=== PATIENT | male | born 1940 | race Caucasian/White ===

== ENCOUNTER 2018-08-13 17:01 | Inpatient (IN) | payer OTHER, BC ==
[2018-08-13] MEDS ORDERED: AMIODARONE HCL 150 MG/100 ML BAG (1.5 MG/ML) IV ONE ×2 (17:05→17:13)
[2018-08-13] MEDS ORDERED: NS 1,000 ML IV ONE (17:08)
--- NOTE | 2018-08-13 17:09 | EDPHY ---
H & P Time Seen by Provider: 08/13/18 17:09 HPI/ROS: HPI CHIEF COMPLAINT: V TACH HISTORY OF PRESENT ILLNESS: 70-year-old male, history of obstructive sleep apnea, AFib on Eliquis, presents to the emergency room with a wide complex tachycardia stable. Initially went to urgent care. He states over the past 4 days he has had intermittent fast heart rate palpitations. He presents emergency room completely stable. No chest pain. Does feel palpitations and lightheadedness. Patient arrives to the Emergency room heart rate 199, he is in a wide complex tachycardia. His blood pressure is 106/86. Patient mentating appropriately. Past Medical History: AFib, obstructive sleep apnea Past Surgical History: Denies recent surgery Social History: Denies drugs alcohol tobacco. Family History: Noncontributory ROS REVIEW OF SYSTEMS: 10 Systems were reviewed and negative with the exception of the elements mentioned in the history of present illness. Exam Constitutional nontoxic no acute distress triage nursing summary reviewed, vital signs reviewed, awake/alert. Vital signs noted to be heart rate 200, blood pressure 106/86. Pulse ox 96%. Eyes normal conjunctivae and sclera, EOMI, PERRLA. HENT normal inspection, atraumatic, moist mucus membranes, no epistaxis, neck supple/ no meningismus, no raccoon eyes. Respiratory clear to auscultation bilaterally, normal breath sounds, no respiratory distress, no wheezing. Cardiovascular rate normal, regular rhythm, no murmur, no edema, distal pulses normal. Gastrointestinal soft, non-tender, no rebound, no guarding, normal bowel sounds, no distension, no pulsatile mass. Genitourinary no CVA tenderness. Musculoskeletal no midline vertebral tenderness, full range of motion, no calf swelling, no tenderness of extremities, no meningismus, good pulses, neurovascularly intact. Skin pink, warm, & dry, no rash, skin atraumatic. Neurologic awake, alert and oriented x 3, AAOx3, moves all 4 extremities equally, motor intact, sensory intact, CN II-XII intact, normal cerebellar, normal vision, normal speech. Psychiatric normal mood/affect. Heme/Lymph/Immune no lymphadenopathy. Differential diagnosis includes but is not limited to: ACS, atypical chest pain , pneumothorax, pneumonia, pulmonary embolism, aortic dissection, congestive heart failure, tumor, musculoskeletal pain, esophageal pain, GERD, peptic ulcer disease, pancreatitis Medical Decision Making: Plan for this patient IV establishment full radiation monitor EKG, troponin, chest x-ray, amiodarone 300 mg IV bolus, IV fluids, cardiology consult. Admission to the hospital Re-evaluation: EKG interpretation by me on record in [facility] system. Impression time of EKG 1705, this is tachycardic 203, wide complex appears to be a ventricular tachycardia. 1715: Consult Dr. Rodriguez. Cardiology. Recommends Amio Bolus. If unstabl proceed with sedation and shock. Patient was given amiodarone bolus. His heart rate went from 200 with a wide complex tachycardia he is currently nail heart rate of 80s in AFib. EKG interpretation by me on record in [facility] system. Impression this is a repeat EKG time of EKG 1722, AFib rate of 83, T-wave abnormality inferior leads to [address] elevation. Q-waves V1 V2 V3. Subtle ST depression V4 V5 V6. Patient be admitted to the PCU due to ventricular tachycardia with a wide complex V-tach. Heart rate 200. This is now converted with amiodarone bolus. Spoke with the hospitalist service Dr. Schaeffer will admit CXR: Chest x-ray one view cardiomegaly present. No acute infiltrate. Critical Care: Total Critical Care Time Spent Managing this Patient: 65Minutes. This time was spent Exclusively with this patient. This Care was exclusive of procedures. The Organ System/life at risk was ventricular tachycardia This Patient was in Critical Condition because ventricular tachycardia. Source: Patient, EMS Constitutional: Initial Vital Signs O2 Sat (%) 98 08/13/18 17:08 O2 Delivery Mode Nasal Cannula O2 (L/minute) 2 Allergies/Adverse Reactions: No Known Allergies Allergy (Verified 08/13/18 17:34) Home Medications: Medication Instructions Recorded Apixaban [Eliquis] 5 mg PO BID 08/13/18 Latanoprost [Latanoprost] 1 drop EACHEYE HS 08/13/18 Metoprolol Succinate Xr [Toprol Xl 50 mg PO DAILY 08/13/18 50 mg (*)] Multivitamins [Multivitamin (*)] 1 each PO DAILY 08/13/18 Simvastatin [Simvastatin] 40 mg PO HS 08/13/18 Medical Decision Making - Data Points Laboratory Results: Laboratory Results 08/13/18 17:05 08/13/18 17:05 Medications Given: Amiodarone HCl (Amiodarone Hcl) 400 mg PO TID [facility] Stop: 02/10/19 21:59 Last Admin: 08/14/18 20:54 Dose: 400 mg Sodium Chloride (Ns) 1,000 mls @ 100 mls/hr IV CONT DOROTHEA Stop: 08/15/18 03:14 Last Admin: 08/14/18 18:48 Dose: 1,000 mls Latanoprost (Xalatan 0.005%) 1 drops EACHEYE HS DOROTHEA Stop: 02/09/19 20:59 Last Admin: 08/13/18 23:17 Dose: Not Given Metoprolol Succinate (Toprol Xl) 50 mg PO DAILY [facility] Stop: 02/10/19 08:59 Last Admin: 08/14/18 12:04 Dose: Not Given Temazepam (Restoril) 15 mg PO HS PRN PRN Reason: Sleep/Insomnia Stop: 02/09/19 21:23 Last Admin: 08/13/18 21:30 Dose: 15 mg Discontinued Medications Aspirin Buffered (Aspirin Ec) 325 mg PO ONCALL ONE Stop: 08/14/18 15:07 Last Admin: 08/14/18 15:19 Dose: 325 mg Clopidogrel Bisulfate (Plavix) 600 mg PO ONCE ONE Stop: 08/14/18 17:04 Last Admin: 08/14/18 18:17 Dose: Not Given Diazepam (Valium) 5 mg PO ONCALL ONE Stop: 08/14/18 15:07 Last Admin: 08/14/18 15:19 Dose: 5 mg Diphenhydramine HCl (Benadryl) 25 mg PO ONCALL ONE Stop: 08/14/18 15:07 Last Admin: 08/14/18 15:19 Dose: 25 mg Famotidine (Pepcid) 20 mg PO ONCALL ONE Stop: 08/14/18 15:07 Last Admin: 08/14/18 15:19 Dose: 20 mg Sodium Chloride (Ns) 1,000 mls @ 0 mls/hr IV EDNOW ONE; Wide Open PRN Reason: Protocol Stop: 08/13/18 17:09 Last Admin: 08/13/18 17:18 Dose: 1,000 mls Amiodarone HCl 300 mg/ (Dextrose) 106 mls @ 318 mls/hr IV ONCE ONE Stop: 08/13/18 17:29 Last Admin: 08/13/18 17:18 Dose: 106 mls Amiodarone HCl (Amiodarone Hcl) 100 mls @ 600 mls/hr IV ONCE ONE Stop: 08/13/18 17:19 Last Admin: 08/13/18 17:26 Dose: Not Given Amiodarone HCl (Amiodarone Hcl) 200 mls @ 0 mls/hr IV EDNOW ONE PRN Reason: As Directed Stop: 08/13/18 17:42 Last Admin: 08/13/18 18:00 Dose: 200 mls Sodium Chloride (Ns) 1,000 mls @ 100 mls/hr IV CONT DOROTHEA Stop: 02/09/19 18:14 Last Admin: 08/14/18 07:50 Dose: 1,000 mls Amiodarone HCl 540 mg/ (Dextrose) 300 mls @ 16.667 mls/hr IV ONCE ONE Stop: 08/14/18 17:58 Last Admin: 08/13/18 23:17 Dose: 300 mls Sodium Chloride (Ns) 1,000 mls @ 0 mls/hr IV ONCALL ONE PRN Reason: TKO Stop: 08/14/18 15:07 Last Admin: 08/14/18 15:21 Dose: Not Given Point of Care Test Results: Chemistry 08/13/18 17:10 POC Troponin I 0.80 ng/mL H ng/mL (0.00-0.08) Departure - Departure Disposition: [facility]patient Acute Clinical Impression: Ventricular tachycardia Condition: Serious
[2018-08-13] MEDS ORDERED: AMIODARONE HCL 100 ML IV ONE (17:10)
[2018-08-13] MEDS ORDERED: AMIODARONE HCL 300 MG in D5W 100 ML IV ONE (17:10)
[2018-08-13 17:24] LABS: INR 1.46 (0.83-1.16); PROTIME(PATIENT) 17.9 SEC (12.0-15.0)
[2018-08-13] MEDS ORDERED: AMIODARONE HCL 200 ML IV ONE ×2 (17:41→18:21)
[2018-08-13 17:45] LABS: PLATELET COUNT 100 10^3/uL (150-400)
[2018-08-13] MEDS ORDERED: PROMETHAZINE HCL 25 MG/ML INJ IVP PRN (18:14)
[2018-08-13] MEDS ORDERED: ACETAMINOPHEN 325 MG TAB PO PRN (18:14)
[2018-08-13] MEDS ORDERED: ONDANSETRON 4 MG/2 ML VIAL IVP PRN (18:14)
[2018-08-13] MEDS ORDERED: oxyCODONE IR 5 MG TAB PO PRN (18:14)
[2018-08-13] MEDS ORDERED: ONDANSETRON DISINTEGRATING 4 MG TAB PO PRN (18:14)
--- NOTE | 2018-08-13 19:05 | PDGENHP ---
History and Physical - Chief Complaint sob, fast heart rate - History of Present Illness 78 yo M with a PMH of a fib, HLD and BEHZAD presenting with complaints of fast heart rate and shortness of breath intermittently over the last several weeks but now persistent x 3+ hours. Patient notes this happens from time to time and generally will pass in several minutes if he takes deep breaths and sits calmly. He was seen by a salt operator associated with [facility], Dr. Augustin, recently for these sxs and states that he was told that his problem is not cardiac in nature but rather is related to stress. He notes he is under increased stress recently due to his being "an invalid" for the past 5 weeks and needing to take care of her. At the time of my evaluation patient is noted to go into several runs of sustained VT and even while that is occurring he is awake and conversant though he notes that he feels tingling in the back of his head when it occurs. History Information - Allergies/Home Medication List Allergies/Adverse Reactions: No Known Allergies Allergy (Verified 08/13/18 17:34) Home Medications: Apixaban [Eliquis] 5 mg PO BID 08/13/18 [Last Taken 08/13/18] Latanoprost [Latanoprost] 1 drop EACHEYE HS 08/13/18 [Last Taken 08/12/18] Metoprolol Succinate Xr [Toprol Xl 50 mg (*)] 50 mg PO DAILY 08/13/18 [Last Taken 08/13/18] Multivitamins [Multivitamin (*)] 1 each PO DAILY 08/13/18 [Last Taken 08/13/18] Simvastatin [Simvastatin] 40 mg PO HS 08/13/18 [Last Taken 08/12/18] I have personally reviewed and updated: family history, medical history, social history, surgical history - Past Medical History atrial fibrillation, hyperlipidemia Additional medical history: BEHZAD - Surgical History Reports: no pertinent surgical hx - Family History Positive for: non-pertinent - Social History Smoking Status: Current some day smoker Alcohol Use: Rarely Drug Use: None Additional social history: lives indepedently with his . 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 Review of Systems Review of Systems: ROS: 10pt was reviewed & negative except for what was stated in HPI & below Physical Exam Physical Exam: Temp Pulse Resp BP Pulse Ox 36.5 C 89 12 126/93 H 93 08/13/18 19:01 08/13/18 19:01 08/13/18 19:01 08/13/18 19:01 08/13/18 19:01 O2 (L/minute) 2 Constitutional: no apparent distress, appears nourished Eyes: PERRL, anicteric sclera Ears, Nose, Mouth, Throat: moist mucous membranes, hearing normal Cardiovascular: no murmur, rub, or gallop, pulses symmetric bilaterally, tachycardia Respiratory: no respiratory distress, no rales or rhonchi, clear to auscultation Gastrointestinal: normoactive bowel sounds, soft, non-tender abdomen Genitourinary: no bladder tenderness Skin: warm, normal color Musculoskeletal: full muscle strength Neurologic: AAOx3 Psychiatric: interacting appropriately, not anxious, not encephalopathic Lab Data & Imaging Review 08/13/18 17:05 08/13/18 17:05 WBC 11.61 10^3/uL (3.80-9.50) H 08/13/18 17:05 RBC 4.59 10^6/uL (4.40-6.38) 08/13/18 17:05 Hgb 16.0 g/dL (13.7-17.5) 08/13/18 17:05 Hct 46.1 % (40.0-51.0) 08/13/18 17:05 MCV 100.4 fL (81.5-99.8) H 08/13/18 17:05 MCH 34.9 pg (27.9-34.1) H 08/13/18 17:05 MCHC 34.7 g/dL (32.4-36.7) 08/13/18 17:05 RDW 13.8 % (11.5-15.2) 08/13/18 17:05 Plt Count 100 10^3/uL (150-400) L 08/13/18 17:05 MPV 13.3 fL (8.7-11.7) H 08/13/18 17:05 Neut % (Auto) 74.5 % (39.3-74.2) H 08/13/18 17:05 Lymph % (Auto) 14.3 % (15.0-45.0) L 08/13/18 17:05 [place] % (Auto) 10.2 % (4.5-13.0) 08/13/18 17:05 Eos % (Auto) 0.4 % (0.6-7.6) L 08/13/18 17:05 Baso % (Auto) 0.3 % (0.3-1.7) 08/13/18 17:05 Nucleat RBC Rel Count 0.0 % (0.0-0.2) 08/13/18 17:05 Absolute Neuts (auto) 8.65 10^3/uL (1.70-6.50) H 08/13/18 17:05 Absolute Lymphs (auto) 1.66 10^3/uL (1.00-3.00) 08/13/18 17:05 Absolute Monos (auto) 1.18 10^3/uL (0.30-0.80) H 08/13/18 17:05 Absolute Eos (auto) 0.05 10^3/uL (0.03-0.40) 08/13/18 17:05 Absolute Basos (auto) 0.03 10^3/uL (0.02-0.10) 08/13/18 17:05 Absolute Nucleated RBC 0.00 10^3/uL (0-0.01) 08/13/18 17:05 Immature Gran % 0.3 % (0.0-1.1) 08/13/18 17:05 Immature Gran # 0.04 10^3/uL (0.00-0.10) 08/13/18 17:05 PT 17.9 SEC (12.0-15.0) H 08/13/18 17:05 INR 1.46 (0.83-1.16) H 08/13/18 17:05 APTT 28.9 SEC (23.0-38.0) 08/13/18 17:05 Sodium 137 mEq/L (135-145) 08/13/18 17:05 Potassium 5.1 mEq/L (3.3-5.0) H 08/13/18 17:05 Chloride 104 mEq/L (97-110) 08/13/18 17:05 Carbon Dioxide 19 mEq/l (22-31) L 08/13/18 17:05 Anion Gap 14 mEq/L (6-14) 08/13/18 17:05 BUN 44 mg/dL (7-23) H 08/13/18 17:05 Creatinine 1.7 mg/dL (0.7-1.3) H 08/13/18 17:05 Estimated GFR 39 08/13/18 17:05 Glucose 117 mg/dL (70-100) H 08/13/18 17:05 Calcium 9.5 mg/dL (8.5-10.4) 08/13/18 17:05 Magnesium 1.9 mg/dL (1.6-2.3) 08/13/18 17:05 Total Bilirubin 1.2 mg/dL (0.1-1.4) 08/13/18 17:05 Conjugated Bilirubin 0.3 mg/dL (0.0-0.5) 08/13/18 17:05 Unconjugated Bilirubin 0.9 mg/dL (0.0-1.1) 08/13/18 17:05 AST 360 IU/L (17-59) H 08/13/18 17:05 ALT 496 IU/L (21-72) H 08/13/18 17:05 Alkaline Phosphatase 93 IU/L (38-126) 08/13/18 17:05 POC Troponin I 0.80 ng/mL (0.00-0.08) H 08/13/18 17:10 NT-Pro-B Natriuret Pep 3540 pg/mL (0-450) H 08/13/18 17:05 Total Protein 6.0 g/dL (6.3-8.2) L 08/13/18 17:05 Albumin 3.8 g/dL (3.5-5.0) 08/13/18 17:05 Visualized and Interpreted Chest x-ray results: Yes Chest X-Ray results: other (cardiomegaly, tortuous aorta, no e/o failure) Visualized and Interpreted EKG results: Yes EKG Interpretation: Positive for: other EKG additional interpertation: initially WCT with rate of 203 c/w VT. after amiodarone a fib Assessment & Plan Assessment: Ventricular tachycardia (Acute) 78 yo M with PMH of a fib presenting with c/o rapid heart rate and sob found to be in sustained VT # sustained VT: patient relatively asymptomatic even with rate in the 200s, given amio bolus and converted to afib. Will continue on amiodarone gtt. Cardiology consulted and with plans to evaluate the patient tonight. Will monitor in PCU on telemetry. Does have e/o cardiomegaly on cxr and mild trop bump and etiology of his VT concerning for ischemia, will trend trops. Will keep patient NPO p MN pending cardiology evaluation and recommendations. Will check TSH as well. Patient notes he had an echocardiogram 2 months ago at [facility], will attempt to find that study. # a fib: patient has been relatively controlled on metoprolol previously, has also been on apixaban as an OP, w/u as above # HLD: holding statin for now with amiodarone gtt on # IP status, patient will likely require > 48 hours stay given life threatening condition present on admission Patient new to my care. Old records reviewed and summarized as above. Care plan reviewed with ER doctor as above. > 35 min critical care time spent in evaluation and care of this patient while in ER, in evaluation of labs/imaging/ ecg/tele and coordination with ER doctor and nurses as well as at patient bedside evaluating and counseling patient.
[2018-08-13] MEDS ORDERED: NON-FORMULARY NEW DRUG (Simvastatin [Simvastatin] 40 MG) PO SCH (21:00)
[2018-08-13] MEDS: NS 1,000 ML IV SCH (21:05)
[2018-08-13] MEDS: TEMAZEPAM 15 MG CAP PO PRN (21:30)
[2018-08-13] MEDS: LATANOPROST 0.005% 2.5 ML OPHT DROPS EACHEYE SCH (23:17)
[2018-08-13] MEDS ORDERED: AMIODARONE HCL 540 MG in D5W 300 ML IV ONE (23:59)
[2018-08-14 04:49] LABS: PLATELET COUNT 87 10^3/uL (150-400)
[2018-08-14] MEDS: NS 1,000 ML IV SCH (07:50)
--- NOTE | 2018-08-14 10:19 | PDMN ---
Medical Necessity Medical necessity: [facility] [place] M575 Ventricular Arrhythmias: 78 yo w/ hx of a fib, HLD and BEHZAD presenting with complaints of fast heart rate and shortness of breath. Found to be in acute, sustained ventricular tachycardia, HR 200s, amiodarone bolus and gtt started, cardiology consult. IP status, patient will likely require > 48 hours stay given life threatening condition present on admission.
--- NOTE | 2018-08-14 10:25 | ECHO ---
[email or web address] [address] [address] Main: [phone] Fax: [email or web address] Echocardiogram Name: CHAO VIRAMONTES MR#: [id number] Study Date: 08/14/2018 Study Time: 08:31 AM Date of : 1940 Age: 78 year(s) Height: 172.7 cm (68 in.) Weight: 80.29 kg (177 lb.) BSA: 1.94 m2 Gender: Male Examination: Echo Indication: Ventricular tachycardia, cardiomegaly on CXR Image Quality: Adequate Contrast: Requested by: Christina Rodriguez BP: 113 mmHg/75 mmHg Heart Rate: Rhythm: Indication: Ventricular tachycardia, cardiomegaly on CXR Procedure Staff Window Draper: Lorin Alcaraz RDCS Reading Physician: Christina Rodriguez MD Requesting Provider: Conclusions: Normal size left ventricle. Mild to moderate LVH. The ejection fraction is estimated to be 45-50 %. subtle inferior hypokinesis. The left atrium is moderately to severely dilated. Mild to moderate mitral regurgitation. Mild aortic valve regurgitation is present. Mild tricuspid regurgitation is present. Right ventricular systolic pressure measures 28mmHg. No pericardial effusion. There is no previous echocardiogram for comparison. Measurements: Chambers Valvular Assessment AV/MV Valvular Assessment TV/PV Normal Normal Normal Name Value Range Name Value Range Name Value Range Ao Apple (2D): 3.4 cm (1.4 cm-2.6 AV Vmax: 1.41 m/s (1 m/s-1.7 TR Vmax: 2.41 mm/s ( - ) cm) m/s) TR PGmax: 23 mmHg ( - ) IVSd (2D): 1.4 cm (0.6 cm-1.1 AV maxP mmHg ( - ) syst. PAP: 28 mmHg ( - ) cm) AV meanP mmHg ( - ) PV Vmax: 0.54 m/s (0.6 m/s-0.9 LVDd (2D): 5.0 cm (4.2 cm-5.9 TIFFANY (VTI): 1.5 cm ( - ) m/s) cm) MV E Vmax: 0.90 m/s ( - ) PV PGmax: 1 mmHg ( - ) LVDs (2D): 4.0 cm (2.1 cm-4 MV PHT: 0.044 s ( - ) cm) MVA (PHT): 5.0 s ( - ) LVPWd (2D): 1.4 cm (0.6 cm-1 cm) LVOTd 2.0 cm 2.0 cm mm LVEF (BP): 40 % (>=55 %) EF Range: 45-50 % RVDd(2D): 3.4 cm (1.9 cm-3.8 cmmm) Patient: CHAO VIRAMONTES Study Date: 08/14/2018 Page 1 of 2 08:31 AM Continued Measurements: Chambers Valvular Assessment AV/MV Valvular Assessment TV/PV Name Value Name Value Name Value LADs: 4.4 cm MV DecTime: 144 m/s CVP (est.): 5 mmHg LADs Lon.8 cm MR ERO: 0.210 cm2 LA Area: 27.6 cm2 MR PISA radius: 6 mm LA Volume: 94 ml MR Reg. Volume: 29 ml LA Volume Index: 48.5 ml/m2 RA Area: 25.1 cm2 Additional Vessels Name Value Ao Ascendin.5 cm Inferior Vena Cava: 2.8 cm Findings: Left Ventricle: Normal size left ventricle. Mild to moderate LVH. The ejection fraction is estimated to be 45-50 %. Unable to assess diastolic dysfunction. subtle inferior hypokinesis. Right Ventricle: Normal size right ventricle. Normal RV function. Left Atrium: The left atrium is moderately to severely dilated. Right Atrium: The right atrium is normal in size. Mitral Valve: The mitral valve is normal in appearance and function. Mild to moderate mitral regurgitation. No mitral stenosis is present. Aortic Valve: The aortic valve is tri-leaflet. Aortic sclerosis is present. Mild aortic valve regurgitation is present. Tricuspid Valve: The tricuspid valve is normal in appearance and function. Mild tricuspid regurgitation is present. The pulmonary artery pressure is normal. Right ventricular systolic pressure measures 28mmHg. Pulmonic Valve: The pulmonic valve is normal in appearance and function. Aorta: The aorta is normal. Normal size aortic root measuring 3.4 cm. Normal size ascending aorta measuring 3.5 cm. IVC: The IVC is dilated. Pericardium: No pericardial effusion. No pleural effusion. (No Signature Object) Patient: CHAO VIRAMONTES Study Date: 08/14/2018 Page 2 of 2 08:31 AM [id number]
[2018-08-14] MEDS: METOPROLOL SUCCINATE XR 50 MG TAB PO SCH (12:04)
--- NOTE | 2018-08-14 12:59 | PDPROPOC ---
Sedation Plan of Care Sedation Plan of Care: vital signs stable, mental status noted, patient educated of risks, benefits, alternatives, patient can tolerate sedation ASA Classification: ASA 2 Planned drugs: fentanyl, midazolam Mallampati Score: Class 2 Mallampati Reference Image: Patient passed 3-3-2 rule?: Yes
--- NOTE | 2018-08-14 13:00 | PDHPUP ---
History & Physical Update H&P update statement: This history and physical update is based on an assessment of the patient which was completed after admission or registration (within 24 hours), but prior to the surgery/procedure. H&P update: H&P reviewed & patient examined, no change in patient's condition since H&P completed (Please see my dictated consult dated 08/14/2018)
--- NOTE | 2018-08-14 13:39 | HOSPPROG ---
Hospitalist Progress Note Assessment/Plan: 78 yo M with PMH of a fib presenting with c/o rapid heart rate and sob found to be in sustained VT. 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 He is euvolemic - Angiogram # Troponin elevation: Plateua around 0.6. Either demand driven or thrombus - Eval as above # Atrial fibrillation: Chronic issue. - Beta lurdes as above - [id number] score at least 2, continue apixaban #Transaminitis: Down-trending, seems most consistent with ischemic hepatitis. - Trend daily, if doesn't continue to improve will get RUQ US # JORDY: Consistent with poor perfusion from arrhythmia - s/p IVF, monitor # Thrombocytopenia: Rather chronic but lowest in our system - Monitor # Moderate mitral regurgitation - Follow as outpatient # HLD - On statin Dispo: remain inpatient for management of cardiac arrhythmia Subjective: No symptoms overnight despite having numerous runs of VT up to 10- 12 beats at a time. His HR has also been intermittently in the 50s and sinus. He is anxious about everything going on with his heart. Objective: Vital Signs Temp Pulse Resp BP Pulse Ox 36.5 C 63 20 113/75 97 08/14/18 07:44 08/14/18 07:44 08/14/18 07:44 08/14/18 07:44 08/14/18 07:44 Laboratory Results 08/14/18 03:48 08/14/18 03:48 08/13/18 08/14/18 08/15/18 05:59 05:59 05:59 Intake Total 830 Output Total 620 Balance 210 PT 17.9 SEC (12.0-15.0) H 08/13/18 17:05 INR 1.46 (0.83-1.16) H 08/13/18 17:05 - Physical Exam Constitutional: no apparent distress, appears nourished, not in pain Eyes: PERRL, anicteric sclera, EOMI Ears, Nose, Mouth, Throat: moist mucous membranes, hearing normal, ears appear normal, no oral mucosal ulcers Cardiovascular: regular rate and rhythym, no murmur, rub, or gallop, No JVD, No edema Respiratory: no respiratory distress, no rales or rhonchi, clear to auscultation Gastrointestinal: normoactive bowel sounds, soft, non-tender abdomen, no palpable masses Genitourinary: no bladder fullness, no bladder tenderness, no renal bruits Skin: no rashes or abrasions, no fluctuance, no induration Musculoskeletal: full muscle strength, no muscle tenderness, normal joint ROM Neurologic: AAOx3, sensation intact bilaterally Psychiatric: interacting appropriately, not anxious, not encephalopathic, thought process linear ICD10 Worksheet Patient Problems: Problems Problem Status Onset Ventricular tachycardia Acute
--- NOTE | 2018-08-14 14:05 | GCON ---
CARDIOLOGY CONSULT DATE OF CONSULTATION: 08/14/2018 REFERRING PHYSICIAN: Dereck Schaeffer MD CHIEF COMPLAINT: Ventricular tachycardia. HISTORY OF PRESENT ILLNESS: We are asked by Dr. Schaeffer to visit with the patient. The patient is a 78-year-old male with a long history of permanent atrial fibrillation. He has dyslipidemia, untre ated CPAP. He has no known history of coronary disease. Over the past 6 days, he has had frequent bouts of dyspnea, associated with palpitations and a sensat ion of hot flash. No syncope. No angina. Symptoms last for few seconds up to several minutes. Yes terday, he felt poorly with dyspnea and palpitations for hours and therefore presented to the [facility] Emergency Department. There, he was found to be in wide-complex tachycardia most consistent with ventricular tachycardia at 203 beats per minute. His blood pressure was slightly above 100 systolic. He was given 150 mg of a miodarone IV, which converted him back into atrial fibrillation. He was admitted for further evaluat ion and management. Overnight, he has remained on an amiodarone drip. He continues to have short salvos of VT up to abou t 11 beats that are not symptomatic. He reports no chest pain at the present time. He was seen at [facility] by Cardiology last week and it was felt that his symptoms are noncardiac at alvaro t time. REVIEW OF SYSTEMS: The patient has been under significant stress due to his being ill. Flaca cristina ma full 10-point review of systems performed is negative, except that which is outlined in histor y of present illness. ALLERGIES: No known drug allergies. PAST MEDICAL HISTORY: 1. Permanent atrial fibrillation. 2. Ventricular tachycardia. 3. Thrombocytopenia. 4. Dyslipidemia. 5. Sleep apnea treated with CPAP. OUTPATIENT MEDICATIONS: Eliquis 5 mg twice daily, Toprol 50 mg daily, simvastatin 80 mg, multivitami n, and latanoprost. 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 He does not smoke cig arettes. He has 1 alcoholic drink daily. He is . FAMILY HISTORY: Not applicable to the current case. PHYSICAL EXAM: VITAL SIGNS: Blood pressure 113/75, lowest blood pressure has been 97/70, heart rate currently in the 60s, oxygen saturation 97% on 1 L nasal cannula. He is afebrile. GENERAL: Well-a ppearing older male in no acute distress. HEENT: Sclerae are clear. No jaundice. Mucous membranes are moist. Normocephalic, atraumatic. CARDIOVASCULAR: JVP is less than 10. Carotids equal and 2+ bilaterally without bruit. Irregularly irregular rhythm without murmur or S3. LUNGS: Clear bilate rally without wheezes, rhonchi, or rales. ABDOMEN: Soft, nontender, and nondistended. No bruits, m asses, or hepatosplenomegaly. PSYCHIATRIC: Appropriate mood and affect. EXTREMITIES: Warm and wel l perfused without cyanosis, clubbing, or edema. LABORATORY/IMAGING: White count 8.4, hematocrit 40, and platelets are 87. INR 1.46. Sodium 136, po tassium 4.5, chloride 107, bicarb 21, BUN 37, creatinine 1.3. AST 225, which is down from 360 yester day evening; ALT is 388, down from 496. Troponin 0.65 and now 0.63. Albumin 3.2. TSH is normal. 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 Serial EKGs reviewed by me: Initial EKG shows wide-complex tachycardia most consistent with ventricu lar tachycardia at 103 beats per minute. Post-amiodarone conversion EKG shows atrial fibrillation wi th controlled ventricular response. Minimal lateral ST depression. Echocardiogram reviewed by me: Normal-sized LV. Mild to moderate LVH. Ejection fraction mildly red uced at 45% to 50%. Septal hypokinesis. Left atrium is moderately to severely dilated. Mild-to-mod erate mitral regurgitation. Mild aortic regurgitation. Mild tricuspid regurgitation with normal est imated pulmonary pressure. Chest x-ray reviewed by me: Cardiomegaly. No acute cardiopulmonary process. Tortuous thoracic aort a. ASSESSMENT/PLAN: 78-year-old male with history of permanent atrial fibrillation, now admitted with f ast sustained ventricular tachycardia. He is now back in atrial fibrillation on amiodarone drip and his usual metoprolol. He continues to have short salvos of ventricular tachycardia. Troponin only m inimally positive. 1. Ventricular tachycardia: Monomorphic. Concerning for scar mediated arrhythmia. I do not think this is a representation of active cardiac ischemia; however, coronary disease is at the top of the l ist of etiology. He will have coronary angiography today. Risks, benefits, and alternatives of this were discussed. He last took his Eliquis greater than 24 hours ago. Continue intravenous amiodaron e and beta lurdes. Depending on results of catheterization, will probably be a candidate for implan table cardioverter defibrillator implant. 2. Cardiomyopathy: He is not markedly volume overloaded. Ejection fraction of 45%. His ejection f raction may improve now that he is out of ventricular tachycardia. Needs assessment of coronary garcia kris as detailed above. Would also consider JENNIFER inhibitor therapy. 3. Dyslipidemia: He is on high-dose simvastatin. Would favor switching to atorvastatin. We will c heck lipids. 4. Atrial fibrillation: He is currently rate controlled. Eliquis on hold for procedures. 5. Thrombocytopenia: Lower than his previous value in March 2016. This will need outpatient followu p. 6. Elevated ALT, AST: This may be related to hypoperfusion when he was in ventricular tachycardia. Values are trending down. We will defer to Hospital Medicine whether or not he should have a right upper quadrant ultrasound. 7. Acute renal failure: Creatinine is 1.7 on admission, today 1.3. Again likely related to hypoper fusion. We will follow this closely post-catheterization. Thank you for allowing us to participate in his care. We will follow with you. /[id number]/MODL
[2018-08-14] MEDS ORDERED: fentaNYL 100 MCG/2 ML INJ ONE ×2 (14:15→16:31)
[2018-08-14] MEDS ORDERED: MIDAZOLAM 2 MG/2 ML VIAL ONE ×2 (14:15→16:31)
[2018-08-14] MEDS ORDERED: IOPAMIDOL (ISOVUE-370) 150 ML BTL IV ONE (14:15)
[2018-08-14] MEDS ORDERED: LIDOCAINE 1% 300 MG/30 ML SDV ONE (14:15)
[2018-08-14] MEDS ORDERED: FAMOTIDINE 20 MG TAB PO ONE (15:06)
[2018-08-14] MEDS ORDERED: ASPIRIN EC 325 MG TAB PO ONE ×2 (15:06→15:14)
[2018-08-14] MEDS ORDERED: DIAZEPAM 5 MG TAB PO ONE (15:06)
[2018-08-14] MEDS ORDERED: diphenhydrAMINE 25 MG CAP PO ONE ×2 (15:06→15:14)
[2018-08-14] MEDS ORDERED: NS 1,000 ML IV ONE (15:06)
[2018-08-14] MEDS ORDERED: FAMOTIDINE 20 MG TAB ONE (15:14)
[2018-08-14] MEDS ORDERED: DIAZEPAM 5 MG TAB ONE (15:15)
--- NOTE | 2018-08-14 15:23 | ASMTCMCOM ---
CM Note CM Note Notes: Pt has been admitted with v-tach SOB. He reported having sx for past 3 weeks and was seen by a photo retoucher who felt the sx were stress related. Apparently pt's has been ill for past 5 weeks and this has caused him increased stress. 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 Cardiology is following. CM will follow for any d/c needs. Date Signed: 08/14/2018 03:23 PM Electronically Signed By:WANDA López
[2018-08-14] MEDS ORDERED: NITROGLYCERIN 1,500 MCG/15 ML VIAL MISC ONE (16:14)
[2018-08-14] MEDS ORDERED: BIVALIRUDIN 250 MG/5 ML VIAL IV ONE (16:14)
[2018-08-14] MEDS ORDERED: CLOPIDOGREL BISULFATE 75 MG TAB ONE (17:00)
[2018-08-14] MEDS ORDERED: ATROPINE SULFATE 1 MG/10 ML SYR IVP PRN (17:03)
[2018-08-14] MEDS ORDERED: CLOPIDOGREL BISULFATE 75 MG TAB PO ONE (17:03)
[2018-08-14] MEDS ORDERED: NITROGLYCERIN 0.4 MG BTL SL PRN (17:03)
[2018-08-14] MEDS ORDERED: NS 1,000 ML IV SCH (17:15)
--- NOTE | 2018-08-14 17:42 | CPIP ---
PROCEDURE PERFORMED: 1. Coronary catheterization. 2. Percutaneous transluminal coronary angioplasty and stent implantation of the mid left anterior de scending with a 2.5 x 16 Synergy drug-eluting stent. COMPLICATIONS: None. TRAUMA MANAGER: Juan Strange MD INDICATIONS/APPROPRIATE USE CRITERIA: I was asked for intraoperative consultation by Dr. Rodriguez for ev aluation of a lesion that she identified on diagnostic angiography of the LAD. Brief patient history is that the patient presented with intermittent sensation of tachycardia with a history of permanent atrial fibrillation with controlled ventricular response. He is also lightheaded and dizzy with tho se symptoms. He presented to the emergency department, was found to have ventricular tachycardia alvaro t responded nicely to intravenous amiodarone. The patient is continued to have salvos of intermitten t nonsustained ventricular tachycardia, which prompted angiography. I was asked for intraoperative c onsultation, and on QCA, the patient's mid LAD was noted to have an 83% obstruction with associated d ecreased dye density consistent with a possible thrombus within the mid LAD territory. These finding s are consistent with an acute coronary syndrome. PROCEDURE IN DETAIL: After informed consent was obtained, n.p.o. status had been confirmed, and the patient underwent diagnostic angiography under the care of Dr. Rodriguez, I was asked for intraoperative c onsultation and agreed that there was a flow-limiting obstruction of the mid LAD with associated ST-s egment changes on EKG suggestive of ischemia with intermittent and life-threatening rhythm disturbanc e with sustained ventricular tachycardia on presentation with heart rates above 200, which clearly wo uld ultimately be unstable and life-threatening. A 6-[place]izen [place] JL4 guiding catheter was used for guide catheter support. A 0.014 Intuition wire was adva nced across the lesion in question. The lesion was then primarily stented with a 2.5 x [address]-eluting stent with 2 inflations to a maximum pressure of 14 atmospheres. Post-stent implantation, there did appear to be spasm of the LAD distal to the stent and also in the ostial and proximal segment. The guiding catheter was pulled back and the patient received intracoro nary nitroglycerin at a dose of 400 mg with subsequent resolution of both of those findings in the os tial and proximal LAD, as well as in the LAD distal to the stent implantation. There was no side bra nch compromise and the LAD stent had good stent geometry, was widely expanded in orthogonal views wit h excellent OSIRIS-3 flow and no dye staining at the side of the stent or elsewhere in the blood vessel . IMPRESSION: Successful percutaneous transluminal angioplasty and stent placement for indication of a cute coronary syndrome and sustained and life-threatening ventricular tachycardia on presentation. /[id number]/MODL
--- NOTE | 2018-08-14 20:04 | PDDXCAT ---
Diagnostic Cath Note - . 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 Bifurcates into LAD and LCx LAD: 2 principal diagonals. Mid vessel is subtotally occluded with reconstitution of flow distally LCX: 2 principal OMs. Mild luminal irregularities in the Lcx and OMs. RCA: dominant. 30% distal stenosis EDP: 25 LVEF: LV gram not performed due to slightly elevated creatinine Complications: none Estimated blood loss: <50ml Assessment: Critical mid LAD disease. Elevated LVEDP Plan: Interventional consult with Dr. Strange Patient Problems: Problems Problem Status Onset Ventricular tachycardia Acute
[2018-08-14] MEDS: AMIODARONE HCL 200 MG TAB PO SCH (20:54)
[2018-08-14] MEDS: LATANOPROST 0.005% 2.5 ML OPHT DROPS EACHEYE SCH (23:35)
[2018-08-15] MEDS ORDERED: MAGNESIUM OXIDE 400 MG TAB PO ONE (05:02)
[2018-08-15] MEDS: METOPROLOL SUCCINATE XR 50 MG TAB PO SCH (08:32)
[2018-08-15] MEDS: CLOPIDOGREL BISULFATE 75 MG TAB PO SCH (08:32)
[2018-08-15] MEDS: ATORVASTATIN CALCIUM 40 MG TAB PO SCH (08:32)
[2018-08-15] MEDS: ASPIRIN EC 325 MG TAB PO SCH (08:33)
[2018-08-15] MEDS: AMIODARONE HCL 200 MG TAB PO SCH ×3 (08:33→22:19)
[2018-08-15] MEDS: APIXABAN 5 MG TAB PO SCH (08:33)
--- NOTE | 2018-08-15 09:12 | PDCARPN ---
Cardiology Progress Note Chief Complaint: AF with slow V response. Multiple salvos of nonsustained VT Assessment/Plan: Assessment/plan: 78-year-old male with history of permanent atrial fibrillation and treated sleep apnea. Admitted on August 13 with sustained monomorphic VT at 203 beats per minute. Arrhythmia improved with amiodarone. Coronary angiography yesterday showed subtotally occluded mid LAD that was treated with stenting by Dr. Strange. Ejection fraction 45% with subtle inferior hypokinesis. He continues to have VT post PCI. 1. Ventricular tachycardia: This is monomorphic so could be either scar mediated but also does have coronary disease that is now intervened upon. Continue oral amiodarone and beta-lurdes. EP consult today. I do think he would be a candidate for defibrillator therapy given his frequent and previously sustained VT that is symptomatic with an abnormal ejection fraction. 2. Coronary disease status post LAD PCI: He is now on dual antiplatelet therapy. After 1 month we will stop his Plavix because he does require ongoing Eliquis for his atrial fibrillation. Continue statin. LDL at goal. 3. Cardiomyopathy: Mild heart failure today. Lasix IV x1 and re-evaluate. Consider JENNIFER-I later, but he is presyncopal now so hold off today. 4. Permanent atrial fibrillation: Eliquis has been restarted. This may need to be held if he will have a device this admission. 5. Acute renal failure: Creatinine was 1.7 upon admission, likely due to hypoperfusion in the setting of sustained VT. 1.3 yesterday, 1.2 today. 6. AST and ALT elevation: Also likely from hypoperfusion. Values were improved yesterday. Today's labs are pending. 7.Sleep apnea: This is treated with CPAP. 8. Thrombocytopenia: Will need outpatient follow-up. 08/15/18 09:44 Subjective: He denies angina. When he stands up he feels a bit lightheaded. He is noticing intermittent tremor sensation in his chest. No dyspnea. Feels that his urine output is low. Objective: Vital Signs (8 Hrs) Temp Pulse Resp BP Pulse Ox 08/15/18 07:26 36.6 C 62 13 119/77 93 08/15/18 03:32 36.5 C 61 14 108/70 95 Intake/Output (24 Hrs) 10/08/15/18 08/16/18 05:59 05:59 05:59 Intake Total 830 2650 Output Total 620 1510 Balance 210 1140 Intake: Oral (ml) 400 IV Intake (ml) 125 550 IV Infused (ml) 705 1700 Amiodarone HCl 200 ml @ 35 As Directed IV EDNOW ONE Rx#:[id number] Amiodarone HCl 540 mg In 100 D5w 300 ml @ 16.667 mls/ hr IV ONCE ONE Rx#: [id number] Ns 1,000 ml @ 100 mls/hr 570 1700 IV CONT DOROTHEA Rx#: [id number] Output: Urine (ml) 620 1510 Toilet 110 Urinal 620 1400 Other: Weight 78.5 kg 79.9 kg Number of Voids Toilet 1 1 No acute distress. JVP 14 cm of water. Irregularly irregular rhythm. No murmur or S3 Bibasilar rales that clear with coughing No lower extremity edema. Right femoral arteriotomy site is clean dry and intact with no significant ecchymoses or hematoma. Result Diagrams: 08/15/18 03:20 08/15/18 03:20 Cardiac Labs: Cardiac Lab Results (72 Hrs) 08/14/18 08/13/18 03:48 23:06 Troponin I 0.633 H 0.656 H ICD10 Worksheet Patient Problems: Problems Problem Status Onset Ventricular tachycardia Acute
[2018-08-15] MEDS ORDERED: FUROSEMIDE 40 MG/4 ML VIAL IVP ONE ×2 (09:43→10:00)
--- NOTE | 2018-08-15 16:41 | PDCARCONS ---
Cardiology Consult Reason for Consult: Ventricular tachycardia, electrophysiology consultation Chief Complaint: Dizziness, hot flashes Requesting Physician: Dr. Christina Rodriguez History of Present Illness: Asked to consult on this very pleasant patient by Dr. Christina Rodriguez. He is a 78- year-old male with permanent atrial fibrillation, dyslipidemia. He presented with symptoms of palpitations, hot flashes and bouts of dyspnea, in the emergency department he was noted to be in wide complex tachycardia at 203 beats per minute. He was given IV amiodarone, 150 mg with reversion back to atrial fibrillation He underwent coronary angiography that showed subtotal LAD stenosis and underwent percutaneous intervention to this. I have been asked to discuss implantation of a defibrillator with the patient. History Information - Allergies/Home Medication List Allergies/Adverse Reactions: No Known Allergies Allergy (Verified 08/13/18 17:34) Home Medications: Apixaban [Eliquis] 5 mg PO BID 08/13/18 [Last Taken 08/13/18] Latanoprost [Latanoprost] 1 drop EACHEYE HS 08/13/18 [Last Taken 08/12/18] Metoprolol Succinate Xr [Toprol Xl 50 mg (*)] 50 mg PO DAILY 08/13/18 [Last Taken 08/13/18] Multivitamins [Multivitamin (*)] 1 each PO DAILY 08/13/18 [Last Taken 08/13/18] Simvastatin [Simvastatin] 40 mg PO HS 08/13/18 [Last Taken 08/12/18] Past Medical History: - Social History Smoking Status: Current some day smoker Alcohol Use: Rarely Drug Use: None Physical Exam Physical Exam: Temp Pulse Resp BP Pulse Ox 36.5 C 62 16 115/73 93 08/15/18 16:00 08/15/18 16:00 08/15/18 16:00 08/15/18 16:00 08/15/18 16:00 O2 (L/minute) 1.5 Constitutional: no apparent distress, appears nourished, not in pain Eyes: PERRL Ears, Nose, Mouth, Throat: moist mucous membranes, hearing normal Cardiovascular: irregularly irregular Respiratory: no respiratory distress Gastrointestinal: normoactive bowel sounds Skin: warm, normal color Neurologic: AAOx3 Psychiatric: interacting appropriately, not anxious, not encephalopathic, thought process linear Lab and Imaging 08/15/18 03:20 08/15/18 03:20 WBC 7.77 10^3/uL (3.80-9.50) 08/15/18 03:20 RBC 3.95 10^6/uL (4.40-6.38) L 08/15/18 03:20 Hgb 13.8 g/dL (13.7-17.5) 08/15/18 03:20 Hct 40.7 % (40.0-51.0) 08/15/18 03:20 MCV 103.0 fL (81.5-99.8) H 08/15/18 03:20 MCH 34.9 pg (27.9-34.1) H 08/15/18 03:20 MCHC 33.9 g/dL (32.4-36.7) 08/15/18 03:20 RDW 13.9 % (11.5-15.2) 08/15/18 03:20 Plt Count 86 10^3/uL (150-400) L 08/15/18 03:20 MPV 14.2 fL (8.7-11.7) H 08/14/18 03:48 Neut % (Auto) 60.4 % (39.3-74.2) 08/14/18 03:48 Lymph % (Auto) 25.7 % (15.0-45.0) 08/14/18 03:48 Marion % (Auto) 11.8 % (4.5-13.0) 08/14/18 03:48 Eos % (Auto) 1.3 % (0.6-7.6) 08/14/18 03:48 Baso % (Auto) 0.4 % (0.3-1.7) 08/14/18 03:48 Nucleat RBC Rel Count 0.0 % (0.0-0.2) 08/14/18 03:48 Absolute Neuts (auto) 5.10 10^3/uL (1.70-6.50) 08/14/18 03:48 Absolute Lymphs (auto) 2.17 10^3/uL (1.00-3.00) 08/14/18 03:48 Absolute Monos (auto) 1.00 10^3/uL (0.30-0.80) H 08/14/18 03:48 Absolute Eos (auto) 0.11 10^3/uL (0.03-0.40) 08/14/18 03:48 Absolute Basos (auto) 0.03 10^3/uL (0.02-0.10) 08/14/18 03:48 Absolute Nucleated RBC 0.00 10^3/uL (0-0.01) 08/14/18 03:48 Immature Gran % 0.4 % (0.0-1.1) 08/14/18 03:48 Immature Gran # 0.03 10^3/uL (0.00-0.10) 08/14/18 03:48 PT 17.9 SEC (12.0-15.0) H 08/13/18 17:05 INR 1.46 (0.83-1.16) H 08/13/18 17:05 APTT 28.9 SEC (23.0-38.0) 08/13/18 17:05 Sodium 138 mEq/L (135-145) 08/15/18 03:20 Potassium 4.1 mEq/L (3.3-5.0) 08/15/18 03:20 Chloride 108 mEq/L (97-110) 08/15/18 03:20 Carbon Dioxide 21 mEq/l (22-31) L 08/15/18 03:20 Anion Gap 9 mEq/L (6-14) 08/15/18 03:20 BUN 27 mg/dL (7-23) H 08/15/18 03:20 Creatinine 1.2 mg/dL (0.7-1.3) 08/15/18 03:20 Estimated GFR 59 08/15/18 03:20 Glucose 82 mg/dL (70-100) 08/15/18 03:20 Calcium 8.7 mg/dL (8.5-10.4) 08/15/18 03:20 Phosphorus 3.7 mg/dL (2.5-4.5) 08/14/18 03:48 Magnesium 1.8 mg/dL (1.6-2.3) 08/15/18 03:20 Total Bilirubin 0.9 mg/dL (0.1-1.4) 08/15/18 03:20 Conjugated Bilirubin 0.3 mg/dL (0.0-0.5) 08/15/18 03:20 Unconjugated Bilirubin 0.6 mg/dL (0.0-1.1) 08/15/18 03:20 AST 183 IU/L (17-59) H 08/15/18 03:20 ALT 364 IU/L (21-72) H 08/15/18 03:20 Alkaline Phosphatase 72 IU/L (38-126) 08/15/18 03:20 POC Troponin I 0.80 ng/mL (0.00-0.08) H 08/13/18 17:10 Troponin I 0.633 ng/mL (0.000-0.034) H 08/14/18 03:48 NT-Pro-B Natriuret Pep 3540 pg/mL (0-450) H 08/13/18 17:05 Total Protein 5.2 g/dL (6.3-8.2) L 08/15/18 03:20 Albumin 3.0 g/dL (3.5-5.0) L 08/15/18 03:20 Triglycerides 102 mg/dL (40-150) 08/14/18 03:48 Cholesterol 100 mg/dL (140-220) L 08/14/18 03:48 Cholesterol Risk Factr 0.5 (0.2-1.0) 08/14/18 03:48 LDL Cholesterol, Calc 46 mg/dL (80-100) L 08/14/18 03:48 LDL Risk Factor 0.6 (0.2-1.0) 08/14/18 03:48 VLDL Cholesterol 20 mg/dL (8-25) 08/14/18 03:48 Non-HDL Cholesterol 66 mg/dL (90-129) L 08/14/18 03:48 HDL Cholesterol 34 mg/dL (40-65) L 08/14/18 03:48 LDL/HDL Ratio 1.34 RATIO (1.00-3.64) 08/14/18 03:48 Cholesterol/HDL Ratio 2.94 RATIO (1.00-4.97) 08/14/18 03:48 TSH 2.390 uIU/mL (0.465-4.680) 08/13/18 17:05 Visualized and Interpreted EKG results: Yes EKG additional interpertation: 1. On presentation ventricular tachycardia 2. Currently atrial fibrillation Telemetry: Atrial fibrillation Echocardiogram: LVEF 45% A/P Assessment: 1. Sustained ventricular tachycardia, monomorphic 2. Permanent atrial fibrillation 3. Coronary artery disease, recent PCI to mid LAD 4. Hyperlipidemia Plan: 78-year-old male presenting with sustained monomorphic ventricular tachycardia. Origin of the tachycardia is likely basal inferior based on morphology of ventricular tachycardia. Capture beat and VA dissociation are seen confirming ventricular tachycardia. He had a mid LAD stent placed yesterday. There was mild elevation of troponin 0.7. Post conversion to atrial fibrillation, the patient had no ST elevation. This is not consistent with transmural myocardial infarction. Given that the VT origin was not from LAD territory, was monomorphic and sustained, this is not an ischemic rhythm but is scar related. Ventricular tachycardia continues to occur despite LAD stent. The patient is at a very high likelihood of recurrence of sustained monomorphic ventricular tachycardia and sudden . I have recommended implantation of an ICD, this is scheduled for tomorrow. Risks of transvenous ICD implantation including but not limited to , myocardial infarction, stroke, cardiac tamponade which may require emergent cardiac surgery, infection, bleeding, pneumothorax, lead dislodgement and risks of sedation/anesthesia were discussed. Long-term issues like ICD pocket erosion , lead failure, venous stenosis, superior vena cava syndrome, need for lead extraction were discussed. Need for close long-term follow-up in our device clinic was emphasized. Need for generator change was discussed. We discussed that appropriate and inappropriate ICD shocks can occur. The risk of inappropriate ICD shocks is higher in patients with atrial fibrillation. At this time I would like to continue him on amiodarone for management of ventricular tachycardia. We discussed that he may need ablation for his ventricular tachycardia. We also discussed that ablation for ventricular tachycardia is a palliative procedure and therefore ICD implantation is necessary in my opinion. Alternative for ICD implantation including medical management with amiodarone + beta-blockers only was discussed with him. Procedure is scheduled for tomorrow. This was a complex discussion with the patient due to need for review of records , discussion of pathophysiology of disease and discussion regarding multiple treatment modalities. I spent 45 minutes with the patient, more than 50% of which was spent in counseling. Case was discussed with referring care tech Dr. Christina Rodriguez.
--- NOTE | 2018-08-15 18:51 | HOSPPROG ---
Hospitalist Progress Note Assessment/Plan: 78 yo M with PMH of a fib presenting with c/o rapid heart rate and sob found to be in sustained VT. # Monomorphic VT: Continues to have runs of VT despite revascularization yesterday, suggests this is scar mediated. He is asymptomatic and BP stable - Met with Dr Lynn today, plan for defibrillator tomorrow - Continue amiodarone gtt, metoprolol # Mild cardiomyopathy: LVEF 45-50% with some inferior hypokinesis. LVEDP elevated on cath yesterday - Trial diuresis today, holding on starting JENNIFER/ARB with dizziness #CAD: s/p stent in LAD on 08/14 - Aspirin and plavix started. Plan to continue 1 month then discontinue plavix - On statin, BB # Atrial fibrillation: Chronic issue. - Beta lurdes as above - [id number] score at least 2, continue apixaban #Transaminitis: Down-trending, seems most consistent with ischemic hepatitis. - Trend every other day # JORDY: Consistent with poor perfusion from arrhythmia. Improving - Monitor # Thrombocytopenia: Rather chronic but lowest in our system - Monitor # Moderate mitral regurgitation - Follow as outpatient # HLD - On statin Dispo: remain inpatient for management of cardiac arrhythmia Subjective: Had angiography yesterday with stent placed in LAD. Still having significant runs of VT on monitor. Feeling a little lightheaded this AM. Denies chest pain or dyspnea. Objective: Vital Signs Temp Pulse Resp BP Pulse Ox 36.5 C 62 16 115/73 93 08/15/18 16:00 08/15/18 16:00 08/15/18 16:00 08/15/18 16:00 08/15/18 16:00 Laboratory Results 08/15/18 03:20 08/15/18 03:20 08/14/18 08/15/18 08/16/18 05:59 05:59 05:59 Intake Total 830 2650 1000 Output Total 620 1510 3050 Balance 210 1140 -2050 PT 17.9 SEC (12.0-15.0) H 08/13/18 17:05 INR 1.46 (0.83-1.16) H 08/13/18 17:05 - Physical Exam Constitutional: no apparent distress, appears nourished, not in pain Eyes: PERRL, anicteric sclera, EOMI Ears, Nose, Mouth, Throat: moist mucous membranes, hearing normal, ears appear normal, no oral mucosal ulcers Cardiovascular: regular rate and rhythym, no murmur, rub, or gallop, No JVD, No edema Respiratory: no respiratory distress, no rales or rhonchi, clear to auscultation Gastrointestinal: normoactive bowel sounds, soft, non-tender abdomen, no palpable masses Genitourinary: no bladder fullness, no bladder tenderness, no renal bruits Skin: no rashes or abrasions, no fluctuance, no induration Musculoskeletal: full muscle strength, no muscle tenderness, normal joint ROM Neurologic: AAOx3, sensation intact bilaterally Psychiatric: interacting appropriately, not anxious, not encephalopathic, thought process linear ICD10 Worksheet Patient Problems: Problems Problem Status Onset Ventricular tachycardia Acute
[2018-08-15] MEDS ORDERED: ENOXAPARIN 80 MG/0.8 ML SYR SC ONE (21:00)
[2018-08-15] MEDS: TEMAZEPAM 15 MG CAP PO PRN (22:15)
[2018-08-16] MEDS ORDERED: TEMAZEPAM 15 MG CAP PO ONE (01:29)
[2018-08-16] MEDS: LATANOPROST 0.005% 2.5 ML OPHT DROPS EACHEYE SCH ×2 (02:59→21:44)
[2018-08-16 04:53] LABS: INR 1.32 (0.83-1.16); PROTIME(PATIENT) 16.6 SEC (12.0-15.0)
[2018-08-16 04:59] LABS: PLATELET COUNT 84 10^3/uL (150-400)
[2018-08-16] MEDS ORDERED: BACITRACIN IRRIGATION/NS 50,000 UNITS/1,000 ML BTL IRR ONE (06:00)
[2018-08-16] MEDS ORDERED: NS 1,000 ML IV ONE (06:00)
[2018-08-16] MEDS ORDERED: ceFAZolin 2 GM/DEXTROSE 100 ML IV ONE (06:00)
[2018-08-16] MEDS: ATORVASTATIN CALCIUM 40 MG TAB PO SCH (08:29)
[2018-08-16] MEDS: CLOPIDOGREL BISULFATE 75 MG TAB PO SCH (08:30)
[2018-08-16] MEDS: AMIODARONE HCL 200 MG TAB PO SCH ×3 (08:30→21:44)
[2018-08-16] MEDS: METOPROLOL SUCCINATE XR 50 MG TAB PO SCH (08:30)
[2018-08-16] MEDS: ASPIRIN EC 325 MG TAB PO SCH (08:31)
[2018-08-16] MEDS ORDERED: BISACODYL 10 MG SUPP PR PRN (10:51)
[2018-08-16] MEDS ORDERED: LACTULOSE 20 GM/30 ML UDCUP PO PRN (10:51)
[2018-08-16] MEDS ORDERED: MAGNESIUM HYDROXIDE 30 ML UDCUP PO PRN (10:51)
[2018-08-16] MEDS ORDERED: POLYETHYLENE GLYCOL 3350 17 GM PKT PO PRN (10:51)
--- NOTE | 2018-08-16 12:54 | HOSPPROG ---
Hospitalist Progress Note Assessment/Plan: 78 yo M with PMH of a fib presenting with c/o rapid heart rate and sob found to be in sustained VT. Called to bedside due to 11 beats of VT. He is asymptomatic. Thinks standing may have triggered it. 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 He is asymptomatic and BP stable - Met with Dr Lynn today, plan for defibrillator today - Continue amiodarone gtt, #Bradycardia: onset this morning. Metoprolol will be held. Can likely change his long acting Metoprolol to Tartrate 12.5mg BID. Will d/w Cards # Mild cardiomyopathy: LVEF 45-50% with some inferior hypokinesis. LVEDP elevated on cath yesterday - holding on starting JENNIFER/ARB with dizziness - no e/o of volume overload today. Had Diuretics yesterday. Will hold for now. #CAD: s/p stent in LAD on 08/14 - Aspirin and plavix started. Plan to continue 1 month then discontinue plavix - On statin, BB # Atrial fibrillation: Chronic issue. - Beta lurdes as above - [id number] score at least 2, continue apixaban #Transaminitis: Down-trending, seems most consistent with ischemic hepatitis. - Trend every other day # JORDY: Consistent with poor perfusion from arrhythmia. Improving - Monitor # Thrombocytopenia: Rather chronic but lowest in our system - Monitor # Moderate mitral regurgitation - Follow as outpatient # HLD - On statin Plan: Cont Amio, already given today. The patient is hoping to stop this. Appears stable but persistent VT troublesome. Will have Defibrillator today. Will check Mg Holding long acting BB given bradycardia, hx of Afib note, can likely changed to Metoprolol 12.5mg bid, will d/w cards No diuresis today unless indicated by Cards total critical care time spent with patient with persistent VT is 33 mins. Sween twice today. Rounded at bedside with nursing, pharmacy, and CM Subjective: nurse reporting VT. no cp or sob Objective: Vital Signs Temp Pulse Resp BP Pulse Ox 36.6 C 60 15 139/93 H 94 08/16/18 11:45 08/16/18 11:45 08/16/18 11:45 08/16/18 11:45 08/16/18 03:17 Laboratory Results 08/16/18 03:17 08/16/18 03:17 08/15/18 08/16/18 08/17/18 05:59 05:59 05:59 Intake Total 2650 1300 Output Total 1510 3550 1000 Balance 1140 -2250 -1000 PT 16.6 SEC (12.0-15.0) H 08/16/18 03:17 INR 1.32 (0.83-1.16) H 08/16/18 03:17 - Physical Exam Constitutional: chronically ill appearing Eyes: PERRL Ears, Nose, Mouth, Throat: moist mucous membranes, hearing normal, ears appear normal Cardiovascular: regular rate and rhythym, No edema Respiratory: no respiratory distress, no rales or rhonchi, clear to auscultation Gastrointestinal: normoactive bowel sounds, soft, non-tender abdomen Skin: warm Neurologic: AAOx3 Psychiatric: interacting appropriately, not anxious, not encephalopathic Lymph, Heme, Immunologic: No petechiae ICD10 Worksheet Patient Problems: Problems Problem Status Onset Ventricular tachycardia Acute
[2018-08-16] MEDS ORDERED: MAGNESIUM SULF 2 GM/WATER 50 ML IV ONE (14:30)
[2018-08-16] MEDS ORDERED: BUPIVACAINE 0.75% 10 ML SDV ONE (15:27)
[2018-08-16] MEDS ORDERED: LIDOCAINE 1% 300 MG/30 ML SDV ONE (15:27)
--- NOTE | 2018-08-16 15:34 | PDANEPAE ---
ANE History of Present Illness here for ICD ANE Past Medical History - Pulmonary History Hx COPD: No Hx Asthma/Reactive Airway Disease: Yes Hx Recent Upper Respiratory Infection: No Hx Oxygen in Use at Home: No Hx Sleep Apnea: Yes - Endocrine History Hx Diabetes: No Hypothyroid: No Hyperthyroid: No - Renal History Hx Renal Disorders: No - Liver History Hx Hepatic Disorders: No - Neurological & Psychiatric Hx Hx Neurological and Psychiatric Disorders: No - Chronic Pain History Chronic Pain: Yes ANE Review of Systems Review of systems is: negative Review of Systems: - Exercise capacity Exercise capacity: <4 METS ANE Patient History - Allergies Allergies/Adverse Reactions: No Known Allergies Allergy (Verified 08/13/18 17:34) - Home Medications Home medications: home medication list seen and reviewed Home Medications: Apixaban [Eliquis] 5 mg PO BID 08/13/18 [Last Taken 08/13/18] Latanoprost [Latanoprost] 1 drop EACHEYE HS 08/13/18 [Last Taken 08/12/18] Metoprolol Succinate Xr [Toprol Xl 50 mg (*)] 50 mg PO DAILY 08/13/18 [Last Taken 08/13/18] Multivitamins [Multivitamin (*)] 1 each PO DAILY 08/13/18 [Last Taken 08/13/18] Simvastatin [Simvastatin] 40 mg PO HS 08/13/18 [Last Taken 08/12/18] - NPO status NPO Status: no food or drink >8 hours - Smoking Hx Smoking Status: Current some day smoker - Alcohol Use Alcohol Use: Rarely ANE Labs/Vital Signs - Labs Result Diagrams: 08/16/18 03:17 08/16/18 03:17 - Vital Signs Vital Signs: reviewed preoperatively; see RN documention for details Blood Pressure: 139/93 Heart Rate: 60 Respiratory Rate: 15 O2 Sat (%): 94 Height: 172.72 cm Weight: 78.2 kg ANE Physical Exam - Airway Neck exam: FROM Mallampati Score: Class 1 - Pulmonary Pulmonary: no respiratory distress - Cardiovascular Cardiovascular: regular rate and rhythym - ASA Status ASA Status: IV ANE Anesthesia Plan Anesthesia Plan: GA with mask
--- NOTE | 2018-08-16 15:42 | PDHPUP ---
History & Physical Update H&P update statement: This history and physical update is based on an assessment of the patient which was completed after admission or registration (within 24 hours), but prior to the surgery/procedure. H&P update: H&P reviewed & patient examined, no change in patient's condition since H&P completed
[2018-08-16] MEDS ORDERED: MIDAZOLAM 2 MG/2 ML VIAL ONE (15:43)
[2018-08-16] MEDS ORDERED: PROPOFOL/EMULSION 500 MG/50 ML BOTTLE IV ONE (15:48)
[2018-08-16] MEDS ORDERED: fentaNYL 100 MCG/2 ML INJ ONE (15:56)
--- NOTE | 2018-08-16 17:22 | POSTANESTH ---
Post Anesthetic Evaluation Cardiovascular Status: Normal, Stable Respiratory Status: Normal, Stable Level of Consciousness/Mental Status: Moderately Sleepy Pain Control: Adequate, Prn Tx Ordered Nausea/Vomiting Control: Adequate, Prn Tx Ordered Complications Possibly Related to Anesthesia: None Noted
--- NOTE | 2018-08-16 17:23 | EPPROC ---
Electrophysiology Procedure Note: PROCEDURE PERFORMED: 1. Implantation of an V Implantable Cardioverter Defibrillator 2. Subclavian vein angiography 3. Fluoroscopy INDICATION: Sustained VT PROCEDURE NOTE: Patient presented to the cardiac catheterization laboratory in a fasting, post absorptive state. Dr. Hunter administered sedation. The L infraclavicular area was prepped and draped in the usual sterile fashion. Lidocaine plus bupivacaine was used for local anesthesia. L subclavian venography was performed by injection of iodinated contrast into the L antecubital vein. This was done to assure patency of the vein and also to assess for any anatomical aberrations. Using a combination of blunt and sharp dissection and electrocautery, the dissection was carried down to the prepectoral fascia. A pocket was made in this anatomical plane. All bleeding was controlled with electrocautery. The pocket was packed with gauze soaked in antibiotic solution. Fluoroscopy was utilized during the entire procedure for venous access and placement of the lead. Using a direct stick technique the L extrathoracic axillary vein was accessed with 1 stick using the modified Seldinger technique. Placement of the guidewire into the venous system was confirmed by low-pressure blood return and also by visualizing the guidewire advancing into the inferior vena cava. A purse string suture was applied around the guidewire. One #7 [place] sheath was advanced under fluoroscopic guidance over the guidewire. An active fixation ventricular ICD lead was advanced into the right ventricular apex and screwed in place. The peel away sheath was removed. Pacing thresholds, sensing parameters and lead impedances were measured. 2 apical positions had R wave <5 MV therefore lead was placed in midseptum. There was no diaphragmatic stimulation at maximum output. The lead was sutured to the prepectoral fascia with 3 nonabsorbable sutures. The gauze packing was removed from the ICD pocket. The pocket was again inspected for any bleeding. The lead was attached to the ICD securely. The ICD was inserted into the pocket and secured in place with a nonabsorbable suture. Fluoroscopy was performed in VANG and NEPALI planes to verify right sided placement of the lead. Also fluoroscopy of the ICD pocket was performed. Defibrillation testing was performed. The ICD pocket was closed in 2 layers with vicryl and pérez. Appropriate dressing was applied. The patient left the cardiac catheterization laboratory in stable condition. Serial Numbers: 1. Device : [facility] Vane Assura VR 1357 SN [id number] 2. Ventricular Lead: SJM Durata 7120 Q 52 cm SN [id number] Stimulation Thresholds & Impedance Measurements: 1. Ventricular Lead R 10.4 Mv 523 OHM 0.6 v 0.5 MS Defibrillation testing: Not done due to AFIB and recent LAD stent Pacing Parameters: 1. Pacing mode VVI 2. Lower rate 40 ppm Tachycardia therapy parameters: VT zone: Detection:172 bpm First therapy : ATP Second therapy: 40 Joule VF zone : Detection: 220 bpm First therapy: ATP while charging Subsequent therapies: 40 Joule VT monitor zone 150 bpm Patient Problems: Problems Problem Status Onset Ventricular tachycardia Acute
[2018-08-16] MEDS: SENNOSIDES/DOCUSATE SODIUM TAB PO SCH (21:44)
[2018-08-16] MEDS: TEMAZEPAM 15 MG CAP PO PRN (21:46)
[2018-08-17 04:54] LABS: PLATELET COUNT 85 10^3/uL (150-400)
--- NOTE | 2018-08-17 07:10 | CPEKG ---
Test Reason : OPEN Blood Pressure : / mmHG Vent. Rate : 203 BPM Atrial Rate : 203 BPM P-R Int : 132 ms QRS Dur : 135 ms QT Int : 272 ms P-R-T Axes : 109 -71 117 degrees QTc Int : 500 ms Wide-QRS tachycardia Nonspecific IVCD with LAD Confirmed by Misbah García ([id number]) on 08/17/2018 7:09:24 AM Referred By: Confirmed By:Misbah García
--- NOTE | 2018-08-17 07:10 | CPEKG ---
Test Reason : OPEN Blood Pressure : / mmHG Vent. Rate : 083 BPM Atrial Rate : 000 BPM P-R Int : 250 ms QRS Dur : 119 ms QT Int : 410 ms P-R-T Axes : 000 266 -42 degrees QTc Int : 482 ms Atrial fibrillation Left anterior fascicular block Anteroseptal infarct, old Borderline T abnormalities, inferior leads Confirmed by Misbah García ([id number]) on 08/17/2018 7:09:24 AM Referred By: Confirmed By:Misbah García
[2018-08-17] MEDS: CLOPIDOGREL BISULFATE 75 MG TAB PO SCH (08:11)
[2018-08-17] MEDS: ASPIRIN EC 325 MG TAB PO SCH (08:11)
[2018-08-17] MEDS: AMIODARONE HCL 200 MG TAB PO SCH ×2 (08:11→16:34)
[2018-08-17] MEDS: SENNOSIDES/DOCUSATE SODIUM TAB PO SCH (08:11)
[2018-08-17] MEDS: ATORVASTATIN CALCIUM 40 MG TAB PO SCH (08:11)
[2018-08-17] MEDS: METOPROLOL SUCCINATE XR 50 MG TAB PO SCH (08:12)
[2018-08-17] MEDS: APIXABAN 5 MG TAB PO SCH (08:20)
--- NOTE | 2018-08-17 09:13 | CPEKG ---
Test Reason : OPEN Blood Pressure : / mmHG Vent. Rate : 055 BPM Atrial Rate : 000 BPM P-R Int : 260 ms QRS Dur : 121 ms QT Int : 497 ms P-R-T Axes : 000 -82 -64 degrees QTc Int : 476 ms Atrial fibrillation Ventricular premature complex Nonspecific IVCD with LAD Anteroseptal infarct, old Nonspecific T abnormalities, inferior leads 2.5 second pause noted Confirmed by Ramone Lennon ([id number]) on 08/17/2018 9:12:39 AM Referred By: Confirmed By:Ramone Lennon
--- NOTE | 2018-08-17 09:18 | CPEKG ---
Test Reason : OPEN Blood Pressure : / mmHG Vent. Rate : 056 BPM Atrial Rate : 000 BPM P-R Int : 268 ms QRS Dur : 124 ms QT Int : 461 ms P-R-T Axes : 000 -53 -69 degrees QTc Int : 445 ms Atrial fibrillation Ventricular premature complex Nonspecific IVCD with LAD Anteroseptal infarct, old Nonspecific T abnormalities, inferior leads Confirmed by Ramone Lennon ([id number]) on 08/17/2018 9:18:26 AM Referred By: Confirmed By:Ramone Lennon
[2018-08-17 11:35] VITALS: BP 104/78
--- NOTE | 2018-08-17 12:00 | ASMTCMCOM ---
CM Note CM Note Notes: Pts case discussed w/ tx rounds. Pt will d/c independent when medically stable. Cardiology will continue to follow pt. Pt continues to have v-tach. CM available for changes. Plan: Independent Date Signed: 08/17/2018 12:00 PM Electronically Signed By:ELOINA Espana
--- NOTE | 2018-08-17 14:04 | PDCARPN ---
Cardiology Progress Note Assessment/Plan: Assessment/plan: 78-year-old male with history of permanent atrial fibrillation and treated sleep apnea. Admitted on August 13 with sustained monomorphic VT at 203 beats per minute. Arrhythmia improved with amiodarone. Coronary angiography 08/14 showed subtotally occluded mid LAD that was treated with stenting by Dr. Strange. Ejection fraction 45% with subtle inferior hypokinesis. He continues to have VT post PCI. 1. Ventricular tachycardia: This is monomorphic so could be either scar mediated but also does have coronary disease that is now intervened upon. Because he continued to have salvos of VT that were monomorphic, a secondary prevention ICD was indicated. This was implanted by Dr. Lynn on 08/16. This is a dual-chamber [place] [employer] device. Continue oral amiodarone and beta-lurdes. Reduce amiodarone to 400 mg daily on August 21. 2. Coronary disease status post LAD PCI: He is now on dual antiplatelet therapy. After 1 month we will stop his Plavix because he does require ongoing Eliquis for his atrial fibrillation. Continue statin. LDL at goal. 3. Cardiomyopathy: Mild heart failure has resolved. Consider JENNIFER-I later. 4. Permanent atrial fibrillation: Eliquis has been restarted. 5. Acute renal failure: Creatinine was 1.7 upon admission, likely due to hypoperfusion in the setting of sustained VT. 1.3 yesterday, 1.2 today. 6. AST and ALT elevation: Also likely from hypoperfusion. Values improved. 7.Sleep apnea: This is treated with CPAP. 8. Thrombocytopenia: Will need outpatient follow-up. Stable for discharge from a cardiovascular standpoint. Follow-up at [facility] in 1 week for wound check and device check. Follow up with Dr. Rodriguez in 3- 4 weeks. Enroll in cardiac rehab. 08/17/18 14:02 Subjective: Feels fairly well. Does note brief palpitations. No angina or dyspnea. Ambulated without lightheadedness. Reviewed/Discussed With: hospitalist Time Spent with Patient: greater than 25 minutes Time Spent with Patient: Greater than 25 minutes spent on this patients care, greater than 50% of time spent counseling, educating, and coordinating care regarding the above mentioned plan. Objective: Vital Signs (8 Hrs) Temp Pulse Resp BP Pulse Ox 08/17/18 11:35 36.5 C 54 L 16 104/78 94 08/17/18 08:12 71 134/88 H 08/17/18 07:44 36.5 C 65 16 134/88 H 90 L Intake/Output (24 Hrs) 08/16/18 08/17/18 08/18/18 05:59 05:59 05:59 Intake Total 1300 800 Output Total 3550 1450 500 Balance -2250 -650 -500 Intake: Oral (ml) 1300 800 Output: Urine (ml) 3550 1450 500 Toilet 1500 200 100 Urinal 2050 1250 400 Other: Weight 78.2 kg 78.9 kg Number of Stools Toilet 2 6 No acute distress. JVP less than 10. Irregularly irregular rhythm without murmur. No S3. Lungs clear bilaterally wheeze rhonchi rales No lower extremity edema ICD site is clean dry and intact. Minimal ecchymoses. Minimal swelling that is expected within 24 hr postprocedure. Result Diagrams: 08/17/18 03:28 08/17/18 03:28 Telemetry: Sinus rhythm with frequent salvos of nonsustained VT ICD10 Worksheet Patient Problems: Problems Problem Status Onset Ventricular tachycardia Acute
--- NOTE | 2018-08-17 14:33 | PDDCSUM ---
Discharge Summary Discharge Summary: Assessment/plan: 78-year-old male with history of permanent atrial fibrillation and treated sleep apnea. Admitted on August 13 with sustained monomorphic VT at 203 beats per minute. Arrhythmia improved with amiodarone. Coronary angiography 08/14 showed subtotally occluded mid LAD that was treated with stenting by Dr. Strange. Ejection fraction 45% with subtle inferior hypokinesis. He continued to have VT post PCI. Because he continued to have salvos of VT that were monomorphic, a secondary prevention ICD was indicated. This was implanted by Dr. Lynn on 08/16. This is a dual-chamber [employer] device. At this time the plan is to reduce Amio to 400mg daily Aug 21 and then f/u with Cardiology Follow-up at [facility] in 1 week for wound check and device check. Follow up with Dr. Boswell in 3-4 weeks. Enroll in cardiac rehab. 1. Ventricular tachycardia: This is monomorphic so could be either scar mediated but also does have coronary disease that is now intervened upon. Because he continued to have salvos of VT that were monomorphic, a secondary prevention ICD was indicated. This was implanted by Dr. Lynn on 08/16. This is a dual-chamber [employer] device. Continue oral amiodarone and beta-lurdes. Reduce amiodarone to 400 mg daily on August 21. 2. Coronary disease status post LAD PCI: He is now on dual antiplatelet therapy. After 1 month we will stop his Plavix because he does require ongoing Eliquis for his atrial fibrillation. Continue statin. LDL at goal. 3. Cardiomyopathy: Mild heart failure has resolved. Consider JENNIFER-I later. 4. Permanent atrial fibrillation: Eliquis has been restarted. 5. Acute renal failure: Creatinine was 1.7 upon admission, likely due to hypoperfusion in the setting of sustained VT. 1.3 yesterday, 1.2 today. 6. AST and ALT elevation: Also likely from hypoperfusion. Values improved. 7.Sleep apnea: This is treated with CPAP. 8. Thrombocytopenia: Will need outpatient follow-up. 9. HLD: cont statin # Mild cardiomyopathy: LVEF 45-50% with some inferior hypokinesis. LVEDP elevated on cath yesterday Exam: NAD AAOX3 RRR CTA B S/NT/ND MEDS: SEE MED REC F/U: PER ABOVE D/W DR. BOSWELL TOTAL TIME SPENT ON D/C IS 40 MIN
--- NOTE | 2018-08-17 16:38 | CPEKG ---
Test Reason : OPEN Blood Pressure : / mmHG Vent. Rate : 068 BPM Atrial Rate : 000 BPM P-R Int : 166 ms QRS Dur : 125 ms QT Int : 485 ms P-R-T Axes : 000 -82 -54 degrees QTc Int : 516 ms Afib/flut and V-paced complexes Nonspecific IVCD with LAD Anterior infarct, old Borderline T abnormalities, inferior leads Confirmed by Ramnoe Lennon ([id number]) on 08/17/2018 4:38:22 PM Referred By: Confirmed By:Ramone Lennon
--- NOTE | 2018-08-18 12:17 | CPEKG ---
Test Reason : OPEN Blood Pressure : / mmHG Vent. Rate : 072 BPM Atrial Rate : 000 BPM P-R Int : 202 ms QRS Dur : 125 ms QT Int : 466 ms P-R-T Axes : 000 -76 -71 degrees QTc Int : 511 ms Atrial fibrillation Nonspecific IVCD with LAD Anteroseptal infarct, old Borderline T abnormalities, inferior leads Confirmed by Ramone Lennon ([id number]) on 08/18/2018 12:17:45 PM Referred By: Confirmed By:Ramone Lennon
== END 2018-08-17 17:05 | disposition home or self-care (01) | DRG 245 ==
LOC: EDUNIT# → OBSVTOIN 18:14 → F2W 18:15
PROVIDERS: ADMIT Internal Medicine; ATTEND Family Medicine
PROC: 027034Z Dilation of Coronary Artery, One Artery with Drug-eluting Intraluminal Device, Percutaneous Approach (ICD-10-PCS; 2018-08-14)
PROC: 4A023N7 Measurement of Cardiac Sampling and Pressure, Left Heart, Percutaneous Approach (ICD-10-PCS; 2018-08-14)
PROC: B2111ZZ Fluoroscopy of Multiple Coronary Arteries using Low Osmolar Contrast (ICD-10-PCS; 2018-08-14)
PROC: 0JH608Z Insertion of Defibrillator Generator into Chest Subcutaneous Tissue and Fascia, Open Approach (ICD-10-PCS; principal; 2018-08-16)
PROC: 02HK3JZ Insertion of Pacemaker Lead into Right Ventricle, Percutaneous Approach (ICD-10-PCS; principal; 2018-08-16)
DX: I47.2 Ventricular tachycardia (principal); I25.10 Atherosclerotic heart disease of native coronary artery without angina pectoris; I42.9 Cardiomyopathy, unspecified; I48.2 Chronic atrial fibrillation; N17.9 Acute kidney failure, unspecified; G47.33 Obstructive sleep apnea (adult) (pediatric); D69.6 Thrombocytopenia, unspecified; E78.5 Hyperlipidemia, unspecified; I34.0 Nonrheumatic mitral (valve) insufficiency; Z79.02 Long term (current) use of antithrombotics/antiplatelets
CPT/HCPCS: 84484-PO; 96365; 97161-GP; C1722; C1760; C1769; C1874; C1887; C1895; C9600; G8978-GP-CI; G8979-GP-CI; G8980-GP-CI; J0282; J0583; J0690; J1644; J1650; J1940; J2250; J2704; J3010; J3475; Q9967

== ENCOUNTER → 2018-09-28 | Outpatient (CLI) | payer OTHER, BC | LOC: BMCIMAGING 13:43 | PROVIDERS: ATTEND Internal Medicine Cardiovascular Disease | DX: I51.7 Cardiomegaly (principal); I25.10 Atherosclerotic heart disease of native coronary artery without angina pectoris; I42.9 Cardiomyopathy, unspecified; I48.91 Unspecified atrial fibrillation ==

== ENCOUNTER 2019-04-19 06:45 | Observation (INO) | payer OTHER, BC | END 2019-04-20 12:00 | disposition home health service (06) | LOC: FCATH 06:45 → F2N 15:00 ==